=== PATIENT | female | born 2000 | race Caucasian/White ===

== ENCOUNTER 2018-11-21 13:52 | Emergency (ER) | payer OTHER ==
[~2018-11-21] VITALS: Ht 162.6 cm; Wt 55.3 kg
[2018-11-21] MEDS ORDERED: ZOLOFT50 MG (14:04)
== END 2018-11-21 20:20 | disposition home or self-care (01) ==
LOC: ER 13:52
DX: N94.6 Dysmenorrhea, unspecified (principal)

== ENCOUNTER 2019-01-11 14:11 | Outpatient (CLI) | payer OTHER ==
[~2019-01-11 14:11] MED LIST: ZOLOFT50 MG
== END 2019-01-11 14:17 | disposition home or self-care (01) ==
LOC: SONOGRAMA 14:11
DX: N83.01 Follicular cyst of right ovary (principal); N83.02 Follicular cyst of left ovary